=== PATIENT | female | born 2005 ===

== ENCOUNTER 2025-04-04 14:27 | Outpatient (REF) | payer OTHER, SELFPAY ==
--- NOTE | ~2025-04-04 | XR_ITS ---
EXAMINATION: XR ANKLE, LEFT CLINICAL INFORMATION: M25.572 - Pain in left ankle and joints of left foot COMPARISON: None available. TECHNIQUE: AP, lateral, and mortise views of the left ankle. FINDINGS: No acute cortical disruption or malalignment. No lytic or blastic lesions. No gross joint effusion, anterior tibiotarsal bursa. No metallic or radiopaque foreign body. No subcutaneous emphysema. No bony erosions. No osteolysis.. XR/XR ankle LT min 3V IMPRESSION: No acute fracture or dislocation. Negative exam. Electronically signed by: Chaim Paul MD 04/04/2025 03:34 PM EDT
== END 2025-04-04 14:28 | disposition home or self-care (01) ==
LOC: HO.HMGCX 14:27
PROVIDERS: Visit Provider Physician Assistant
DX: S93.492A Sprain of other ligament of left ankle, initial encounter (principal); M25.572 Pain in left ankle and joints of left foot
CPT/HCPCS: 73610

== ENCOUNTER 2025-04-04 14:27 | Outpatient (AMB) | payer OTHER, SELFPAY ==
--- OUTSIDE RECORDS SUMMARY | 2023-11-23 10:30 | XMS_ITS ---
Author Organization [employer] Address [address] [place] [address] Care Team Providers Care Co Pilot Name Role Phone Ghada Borrego Unavailable [phone] ALLERGIES No Known Allergies REASON FOR VISIT Follow-up 3 months MEDICATIONS Medication SIG (Take, Route, Fr equency, Duration) Notes Start Date End Date Status Multivitamin Active Loryna 3-0.02 MG TAKE 1 TABLET BY GAURI TH EVERY DAY FOR 28 DAYS for 84 Active SOCIAL HISTORY Sex Assigned At : Social History Observation Description Sex Assigned At Female Encounters Encounter Location Date Provider Diagnosis [facility] Gynecologic Oncology, [facility] [address] [address] [place] [address] 11/23/2023 Ghada Borrego Administrative encounter Z02.9 ASSESSMENTS Encounter Date Diagnosis Assessment Notes Treatment Notes Treatment Clinical Notes Section Notes 11/23/2023 Administrative encounter (ICD-10 - Z02.9) PLAN OF TREATMENT Next Appt Details Follow Up: prn, Reason: Progress Notes * GABE AHUJADOB: [birth year] (18 yo F)Acc No.[id number]:11/23/2023 Patient: GABE AHUJA Provider: Ghada Borrego DO :2005 Age:18 Y Sex:Female Date:11/23/2023 Address:[address], [id number] Structured Data:Intergy (1) : 077 Subjective: * Chief Complaints: * Follow-up 3 months * HPI: LOGISTICS PROJECT MANAGER: Patient is an 18-year-old G0 virginal who presents for irregular menses. She states that she misses some months of menses. She has occasional dysmenorrhea. [place] which exhibited bulky ovaries with multiple peripherally located cyst without a follicle count. She also states that she has noticed some increased hair growth on her chin and increased weight. L abs visualized on pt phone portal will all labs wnl except Free testosterone elevated at 5.8. * ROS: Endocrine: Admits Irregular menses. * Medical History: * Director Home Health History: Diagnostic/Health Maintenance: Patient When was your last Pap Smear ? NONE Have you ever had a Mammogram ? No Have you ever had a Pelvic Ultrasound? Yes When? 01/05/2023 Have you ever had a Bone Density ? No Have you ever had a Colonoscopy? No If Menopausal: Patient Age of first period: 10 If Menstruating: Patient First day of last NORMAL period: 08/02/2023 Contraceptive: Patient control use: No Sexual History: Patient Currently in Sexual Relationship: No VIRGIN Sexually Transmitted Infections: Patient Sexually Transmitted Infections: No History: Patient Have you ever been ? No * Surgical History: VSION * Hospitalization/Major Diagno stic Procedure: Denies Past Hospitalization * Family History: Mother: alive. Father: alive. NO FAMILY HX OF CANCER. * Medications: TakingMultivitamin Loryna 3-0.02 MG Tablet TAKE 1 TABLET BY MOUTH EVERY DAY FOR 28 DAYS Medication List reviewed and reconciled with the patientTaking Multivitamin Taking Loryna 3-0.02 MG Tablet TAKE 1 TABLET BY MOUTH EVERY DAY FOR 28 DAYS Medication List reviewed and reconciled with the patient * Allergies: N.K.D.A.no[Allergies Verified] Objective: Assessment: * Assessment: 1. Administrative encounter - Z02.9 (Primary) Plan: * Treatment: * Procedure Codes: AC009 No Show Charge * Follow Up: prn * Billing Information: * Visit Code: * Procedure Codes: AC009 No Show Charge. * Sign off status: Completed true * Provider: Ghada Borrego DO Date: 11/23/2023 History and Physical Notes * HPI (History of Present Illness) Category Sub-Category Detail Notes Category Not es LOGISTICS PROJECT MANAGER Patient is an 18-year-old G0 virginal who presents for irregular menses. She states that she misses some months of menses. She has occasional dysmenorrhea. She [place] which exhibited bulky ovaries with multiple peripherally located cyst without a follicle count. She also states that she has noticed some increased hair growth on her chin and increased weight. Labs visualized on pt phone portal will all labs wnl except Free testosterone elevated at 5.8.
--- NOTE | 2025-04-04 14:43 | MHC.OFFWIV ---
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 - The injury occurred 2 days ago when the patient tripped down stairs, resulting in the ankle rolling outwards and a popping noise. - The patient experienced tingling in the toes immediately after the incident and required assistance to return to her dormitory butg she did take a few steps immediately. - Initial self-care included wrapping the ankle, followed by a visit to health services where a velcro brace was provided. - The patient reports persistent swelling and pain, with new pain developing in the posterior left leg. - The patient has been walking on the injured foot more than recommended and has not been provided with crutches. - Health services suspected a sprain and provided an order for an x-ray, which has not yet been completed. - The patient has been taking ibuprofen 600 mg every six hours and applying ice to manage symptoms. Physical Exam General: Cooperative, healthy appearing, comfortable, no acute distress and well developed Orientation: Patient oriented x3 Limitations: No limitations Head: Normal to inspection Ears: Hearing grossly normal bilaterally Nose: Normal External nose present Face and sinus: Normal facial exam Eyes: Appearance normal, both eyes and all related structures Neck: Normal visual inspection and Yes full ROM Respiratory: Normal respiratory effort and able to speak in complete sentences. Skin: No rashes or lesions noted Neuro: Patient oriented x3 Extremities: left foot/ankle: no TTP posterior or medial malleolus, no ttp base of 5th metatarsal, heel or navicular bone. no ecchymosis, slight edema on lateral ankle/dorsal aspect of foot. full ROM left ankle, toes NVI and full ROM Review of Systems Const All systems reviewed & are unremarkable except as noted in HPI and below Physical Exam Vital Signs: Last Vital Signs Temp 98.3 F 04/04/25 14:45 Pulse 97 04/04/25 14:45 BP 104/70 04/04/25 14:45 Pulse Ox 98 04/04/25 14:45 Oxygen Delivery Method Room Air 04/04/25 14:45 BMI result Body Mass Index 31.0 Assessment & Plan Assessment & Plan (1) Left ankle sprain: Code(s): S93.402A - Sprain of unspecified ligament of left ankle, initial encounter Qualifiers: Encounter type: initial encounter Involved ligament of ankle: anterior talofibular ligament Qualified Code(s): S93.492A - Sprain of other ligament of left ankle, initial encounter Plan: Patient was informed and verbally consented to the use of an ambient scribe for clinic note documentation during this visit. - Recommend continued use of a brace and initiation of a walking boot for support. - Advise rest, ice application, and ibuprofen for pain management. - Suggest follow-up with a physician if symptoms persist or worsen. - Advised if no improvement in her pain after RICE for a few days, to proceed with imaging at [facility] which is where her XR order is for but patient does not want to go there and wants an XR done here and now, ordered. Note: does not meet [facility] rules, likely just a sprain but will order as patient and her mother (who is on the phone) are requesting it. Orders: Orders XR ankle LT min 3V Today M25.572 - Pain in left ankle and joints of left foot Coding Level of Care Code New Pt Level 4 (33225) Diagnoses Sprain of anterior talofibular ligament of left ankle, initial encounter S93.492A Encounter type: initial encounter Involved ligament of ankle: anterior talofibular ligament
[2025-04-04 14:45] VITALS: BP 104/70; PULSE 97; TEMP 36.8; O2SAT 98; BMI 31.0
--- OUTSIDE RECORDS SUMMARY | 2025-04-04 14:48 | XMS_ITS | Encounter Summary ---
Author Organization [facility] Address [address] [place] [address] Care Team Providers Care Security Systems Engineer Name Role Phone Rand Hanson MD Primary Care Provider [phone] Encounter Details Date Type Department Care Team (Late Contact Info) Description 10/17/2018 Prep for Surgery [facility] [address] [address] Camron Anguiano MD [address] [address] Social History Tobacco Use Types Packs/Day Years Used Date Smoking Tobacco: Never Smokeless Tobacco: Never Alcohol Use Standard Drinks/Week Comments No 0 (1 standard drink = 0.6 oz pur e alcohol) Comments No Sex and Gender Information Value Date Recorded Sex Assigned at Female 04/11/2018 7:36 PM EDT Legal Sex Female 7:34 PM EDT Gender Identity Female 04/11/2018 7:36 PM EDT Sexual Orientation Not on file documented as of this encounter Plan of Treatment Upcoming Encounters Date Type Department Care Team ([facility] Contact Info) Description 08/20/2025 1:45 PM EST Office Visit [facility] [address] [address] Camron Anguiano MD [address] [address] Discharge Disposition: Home or Self Care - 01 documented as of this encounter Visit Diagnoses Not on filedocumented in this encounter Care Teams Security Systems Engineer Relationship Specialty Start Date End Date Rand Hanson MD PCP - General Pediatrics 06/14/11 documented as of this encounter
--- OUTSIDE RECORDS SUMMARY | 2025-04-04 14:48 | XMS_ITS | Clinical Summary ---
Author Organization [facility] Address [address] [place] [address] Care Team Providers Care Metal Or Wood Blocker Name Role Phone Rand Hanson MD Primary Care Provider [phone] Allergies No known active allergies Medications Multiple Vitamin (MULTIVITAMINS) tablet Take 1 tablet by mouth daily. Active ketoconazole (NIZORAL) 2 % shampoo Use 2-3 times a week and leave on for 20 minutes and then rinse 120 mL 2 10/25/2018 Active fluocinolone (SYNALAR) 0.01 % external solutionIndicat ions:Seborrheic dermatitis Apply to affected areas on scalp 1-2 times a day as needed for itch or scale 60 mL 2 11/08/2018 Active Loryna 3-0.02 MG tablet Take 1 tablet by mouth daily. 08/02/2024 Active Active Problems Problem Noted Date Diagnosed Date Diplopia 02/19/2020 History of strabismus surger y x2: OP#1 05/24/12 Recess LR OU 7mm (Silvio), OP#2 10/18/18 Resect MR OU 4.5 (Silvio) 12/01/2018 Esotropia 11/09/2018 Keratosis pilaris 11/08/2018 Other viral warts 11/08/2018 Comedonal acne 11/08/2018 Seborrheic dermatitis 11/08/2018 Acne 10/18/2018 Examination of eyes and vision 04/05/2015 Serous otitis media 08/12/2014 Overview (08/12/2014): Jul 2014 - seems to recur Overweight 08/11/2014 Exotropia, intermittent 03/26/2014 Myopia, bilateral 03/26/2014 Resolved Problems Problem Noted Date Diagnosed Date Resolved Date Ear infection 08/12/2014 Ear popping 08/12/2014 Immunizations Immunization Administration Dates Next Due DTaP (Infanrix/Daptacel) 10/18/2006,12/29,2005,09/14 DTaP/HiB/IPV 09/25/2009 HPV 9-Valent (GARDASIL-9) 02/01/2018,08/03/2017 Hep A Family 02/28/2007,07/19/2006 Hep B/HiB 07/19/2006,2005,2005 Hepatitis A Adult (Havrix/Vaqta) 02/28/2007,07/01 Hepatitis B Peds/Adol 3 Dose 07/19/2006,11/17/19 06,2005 HiB 07/19/2006,2005,2005 Inactivated Polio Vaccine (I PV) (Poliovax) 0.5mL 01/16/2006,2005,2005 Influenza Vaccine, Trivalent (AFLURIA FLUZONE) .25 or .5mL 08/20/2008,06/21/2006 Influenza Vaccine, Trivalent , Preserv Free (Fluarix, Alfuria, Flulaval, Fluzone) .5 mL 08/02/2010 Influenza, Live, Trivalent Intranasal 05/15/2015 MMR 09/25/2009,07/19/2006 Meningococcal Polysaccharide (MENQUADFI) (GROUPS A, C, Y, W-135) Tt Conjugate 12/08/2022 Meningococcal Quadrivalent C onjugate (MENACTRA) 08/03/2017 Pneumococcal Conjugate 7-Valent PCV 7 ,01/16/2006,2005,09/14 SARS-COV-2 (COVID-19) VACCIN E (PFIZER) 30 MCG/0.3 ML IM 07/19/2021,03/02/2021,02/09/2021 Tdap (Adacel/Boostrix) 08/03/2017 Varicella 09/25/2009,10/18/2006 influenza vaccine quad PF (A FLURIA FLUZONE FLULAVAL FLUARIX) inj 0.5 mL 05/01/2018,05/19/2016 influenza vaccine tiss-cult subunit (FLUCELVAX) inj 0.5 mL 07/04/2017 influenza, split (incl. darleen fied surface antigen) 08/02/2010 Family History Medical History Relation Name Comments Other Father myopia Arthritis Maternal Grandmother Other Maternal Grandmother GERD Other Paternal Aunt myopia Heart attack Paternal Grandfather Relation Name Status Comments Father Alive Maternal Aunt Alive Maternal Grandfather Alive Maternal Grandmother Alive Mother Alive Paternal Aunt Alive Paternal Grandfather Paternal Grandmother Alive Social History Tobacco Use Types Packs/Day Years [...] PM EDT Sexual Orientation Not on file Last Filed Vital Signs Vital Sign Reading Time Taken Comments Blood Pressure 118/72 06/06/2023 3:45 PM EST Pulse 80 06/06/2023 3:45 PM EST Temperature 36.8 C (98.2 F) 06/06/2023 3:45 PM EST Respiratory Rate 18 10/18/2018 11:4 2 AM EDT Oxygen Saturation 100% 10/18/2018 12: 32 PM EDT Inhaled Oxygen Concentration - - Weight 79.5 kg (175 lb 3.2 oz) 06/06/20 3:45 PM EST Height 160.7 cm (5' 3.25 ) 06/06/2023 3:45 PM ES T Body Mass Index 30.79 06/06/2023 3:45 PM EST Body Mass Index Percentile 95.32% 06/06/2023 3:4 5 PM EST Growth Chart: CDC (Girls, 2- 20 Years) Plan of Treatment Upcoming Encounters Date Type Department Care Team (Late st Contact Info) Description 08/20/2025 1:45 PM EST Office Visit [facility] [address] [place] [address] Camron Anguiano MD [address] [place] [phone] Discharge Disposition: Home or Self Care - 01 Health Maintenance Due Date Last Done Comments Influenza Vaccine (#1) 2025 , 05/01/2018, 07/04/2017, Additional history exists Hepatitis B Vaccines Completed 07/19/2006, 07/19/2006, 2005, Additional history exists Pneumococcal Vaccine Aged Out 01/08/2007, 01/16/2006, 2005, Additional history exists No longer eligible based on patient's age to complete this topic HPV Vaccines Completed 02/01/2018, 08/03/2017 Covid-19 Vaccine Completed 05/13/2024, , 03/02/2021, Additional history exists Insurance [employer] Care Teams Metal Or Wood Blocker Relationship Specialty Start Date End Date Rand Hanson MD PCP - General Pediatrics 06/14/11
--- OUTSIDE RECORDS SUMMARY | 2025-04-04 14:48 | XMS_ITS | Patient Health Record ---
Author Organization [employer] Address [address] [place] [address] Care Team Providers Care Weight And Test Bar Clerk Name Role Phone Ghada Borrego Unavailable [phone] ALLERGIES No Known Allergies REASON FOR REFERRAL No Information MEDICATIONS Medication SIG (Take, Route, Fr equency, Duration) Notes Start Date End Date Status Multivitamin Active Loryna 3-0.02 MG TAKE 1 TABLET BY GARUI TH EVERY DAY FOR 28 DAYS for 84 Active SOCIAL HISTORY Sex Assigned At : Social History Observation Description Sex Assigned At Female PROBLEMS Problem Type ICD Code Onset Dates Problem Status W/U Status Risk SNOMED Code Notes Problem Irregular menses (N92.6) Active confirmed [id number] PLAN OF TREATMENT No Information Insurance Providers Payer Name Payer Address Payer Phone Subscriber Number Group Number Insured Name Patient Relationship to Insured Coverage Start Date Coverage End Date [employer] [address] [place] [phone] [id number] DESTINI AHUJA Parent MEDICAL (GENERAL) HISTORY Medical History History ICD Code NONE Surgical History Surgery Date(Month/Year) VSION
== END 2025-04-04 15:32 | disposition home or self-care (01) ==
PROVIDERS: Visit Provider Physician Assistant
DX: S93.492A Sprain of other ligament of left ankle, initial encounter (principal)

== ENCOUNTER → 2025-04-04 15:24 | Outpatient (BNV) | payer OTHER, SELFPAY | PROVIDERS: Visit Provider Radiology Diagnostic Radiology | DX: M25.572 Pain in left ankle and joints of left foot (principal) | CPT/HCPCS: 73610 ==